=== PATIENT | male | born 1980 | race Caucasian/White ===

== ENCOUNTER 2019-01-28 14:21 | Inpatient (IN) | payer OTHER ==
[2019-01-28 15:21] VITALS: BMI 42.8
--- NOTE | 2019-01-28 16:05 | HP ---
CIWA Score Nausea/Vomitin Muscle Tremors: 3 Anxiety: 3 Agitation: 3 Paroxysmal Sweats: 1-Minimal Palms Moist Orientation: 0-Oriented Tacttile Disturbances: 1-Very Mild Itch/Numbness Auditory Disturbances: 0-None Visual Disturbances: 0-None Headache: 2-Mild CIWA-Ar Total Score: 15 - Admission Criteria OASAS Guidelines: Admission for Medically Managed Detox: Requires at least one of the followin. CIWA greater than 12 2. Seizures within the past 24 hours 3. Delirium tremens within the past 24 hours 4. Hallucinations within the past 24 hours 5. Acute intervention needed for co occurring medical disorder 6. Acute intervention needed for co occurring psychiatric disorder 7. Severe withdrawal that cannot be handled at a lower level of care (continued vomiting, continued diarrhea, abnormal vital signs) requiring intravenous medication and/or fluids 8. Admitting History and Physical - Admission Chief Complaint: i need help to stop drinking alcohol,crack History of Present Illness: this 38 years old mlae with alcohol and crack dependence,seeking help to stop, denied seizure, syncope multiple admissions ,last detox 1 week ago hepatitis c no treatment history of cirrhosis in 2011 seen at [facility] by ambulance 01/27/19 longest sobriety 2 years bipolar 1 disorder History Source: Patient Limitations to Obtaining History: No Limitations - Past Medical History Hepatobiliary: Yes: Cirrhosis Psych: Yes: Bipolar Endocrine: Yes: Hyperthyroidism - Past Surgical History Additional Past Surgical History: carotid stenosis undescend testes - Smoking History Smoking history: Former smoker Have you smoked in the past 12 months: Yes Aproximately how many cigarettes per day: 10 - Alcohol/Substance Use Hx Alcohol Use: Yes (park care) - Social History Usual Living Arrangement: Yes: Other (room mate) ADL: Support Services (disable) Occupation: unemploye History of Recent Travel: No Other Social History: this 38 years old male with alcohol and cocaine dependence ,seeking detox,withdrawal symptom,seen by [facility] last night,. disable Admission ROS BHS - HPI Chief Complaint: i need help to stop alcohol and cocaine Allergies/Adverse Reactions: Allergies Allergy/AdvReac Type Severity Reaction Status Date / Time amoxicillin trihydrate Allergy Severe Swelling Verified 01/28/19 15:08 [From Augmentin] potassium clavulanate Allergy Severe Hives Verified 01/28/19 15:08 [From Augmentin] Sulfa (Sulfonamide Allergy Severe Swelling Verified 01/28/19 15:08 Antibiotics) History of Present Illness: this 38 years old male with alcohol and cocaine dependence,seeking detox, withdrawal symptom,seen in [facility] today,recieving ativan denied seizure denied syncope nicotine dependence bipolar 1 disorder cirrhosis of liver since 2011 Exam Limitations: No Limitations - Ebola screening Have you traveled outside of the country in the last 21 days: No Have you had contact with anyone from an Ebola affected area: No Do you have a fever: No - Review of Systems Constitutional: Loss of Appetite, Malaise, Night Sweats, Changes in sleep, Weakness EENT: reports: Nose Congestion Respiratory: reports: No Symptoms reported Cardiac: reports: No Symptoms Reported GI: reports: Nausea, Poor Appetite, Vomiting, Abdominal cramping : reports: No Symptoms Reported Musculoskeletal: reports: Back Pain, Muscle Pain Integumentary: reports: Dryness Neuro: reports: Headache, Tremors Endocrine: reports: No Symptoms Reported Hematology: reports: No Symptoms Reported Psychiatric: reports: No Sypmtoms Reported, Judgement Intact, Mood/Affect Appropiate, Orientated x3 Other Systems: Reviewed and Negative Patient History - Patient Medical History Hx Anemia: No Hx Asthma: No Hx Chronic Obstructive Pulmonary Disease (COPD): No Hx Cancer: No Hx Cardiac Disorders: No Hx Congestive Heart Failure: No Hx Hypertension: Yes (on med,non compliance) Hx Hypercholesterolemia: No Hx Pacemaker: No HX Cerebrovascular Accident: No Hx Seizures: Yes Hx Dementia: No Hx Diabetes: No Hx Gastrointestinal Disorders: No Hx Liver Disease: Yes (STAGE 4 CIRROHSIS) Hx Genitourinary Disorders: No Hx Sexually Transmitted Disorders: No Hx Renal Disease (ESRD): No Hx Thyroid Disease: No Hx Human Immunodeficiency Virus (HIV): No (last 2019 negative) Hx Hepatitis C: Yes Hx Depression: Yes Hx Suicide Attempt: No Hx Bipolar Disorder: Yes (borderline personality disorder) Hx Schizophrenia: No Other Medical History: no suicidal,no homicidal - Patient Surgical History Past Surgical History: Yes Hx Neurologic Surgery: No Hx Cataract Extraction: No Hx Cardiac Surgery: No Hx Lung Surgery: No Hx Breast Surgery: No Hx Breast Biopsy: No Hx Abdominal Surgery: No Hx Appendectomy: No Hx Cholecystectomy: No Hx Genitourinary Surgery: No Hx Section: No Hx Orthopedic Surgery: No Hx Hysterectomy: No Other Surgical History: as craniosytosis/ undescended testicle/ deviated septum Anesthesia Reaction: No - PPD History Previous Implant?: Yes Implanted On Prior [facility] Admission?: Yes Date: 12/17/14 Results: 0 mm PPD to be Administered?: Yes - Smoking Cessation Smoking history: Former smoker Have you smoked in the past 12 months: Yes Aproximately how many cigarettes per day: 10 Hx Chewing Tobacco Use: No Initiated information on smoking cessation: Yes 'Breaking Loose' booklet given: 01/28/19 - Substance & Tx. History Hx Alcohol Use: Yes Hx Substance Use: Yes Substance Use Type: Alcohol, Cocaine Hx Substance Use Treatment: Yes (1 week ago,unknown facility) - Substances abused Alcohol Substance route: Oral Frequency: Daily Amount used: >LITER OF [place]/VODKA AND 4 24-oz cans of [place] Age of first use: 12 Date of last use: 01/27/19 Crack Substance route: Smoking Frequency: Daily Amount used: $60 Age of first use: 15 Date of last use: 01/28/19 Non-Rx Methadone Substance route: Oral Frequency: 1-3 times last 30 days Amount used: 5mg Age of first use: 38 Date of last use: 01/21/19 K2/Spice Substance route: Smoking Frequency: 1-3 times last 30 days Amount used: 3 puffs Age of first use: 21 Date of last use: 01/22/19 Admission Physical Exam BHS - Vital Signs Vital Signs: Vital Signs - 24 hr 01/28/19 15:06 Temperature 98.2 F Pulse Rate 96 H Respiratory 18 Rate Blood Pressure 125/76 - Physical General Appearance: Yes: Moderate Distress, Tremorous, Irritable, Sweating, Anxious HEENTM: Yes: Normal ENT Inspection, JACQUES, Pharynx Normal Respiratory: Yes: Lungs Clear, Normal Breath Sounds, No Respiratory Distress Neck: Yes: Within Normal Limits, Supple, Trachea in good position Breast: Yes: Within Normal Limits Cardiology: Yes: Within Normal Limits, Regular Rhythm, Regular Rate, S1, S2 Abdominal: Yes: Normal Bowel Sounds, Non Tender, Flat, Soft Genitourinary: Yes: Within Normal Limits Back: Yes: Muscle Spasm Musculoskeletal: Yes: Back pain, Muscle Pain Extremities: Yes: Tremors Neurological: Yes: music worker II-XII NML intact, Alert, Motor Strength 5/5 Integumentary: Yes: Dry Lymphatic: Yes: Within Normal Limits - Diagnostic (1) Alcohol dependence with uncomplicated withdrawal Current Visit: No Status: Acute (2) Cocaine abuse Current Visit: No Status: Acute (3) Syncope Current Visit: No Status: Acute (4) Hepatitis C Current Visit: No Status: Chronic Qualifiers: (5) Cocaine dependence Current Visit: No Status: Suspected Qualifiers: Substance use status: uncomplicated Qualified Code(s): F14.20 - Cocaine dependence, uncomplicated (6) Bipolar I disorder Current Visit: No Status: Chronic (7) Cirrhosis Current Visit: No Status: Chronic Qualifiers: Hepatic cirrhosis type: alcoholic cirrhosis Ascites presence: without ascites Qualified Code(s): K70.30 - Alcoholic cirrhosis of liver without ascites Cleared for Admission S - Detox or Rehab [facility] Level of Care: Medically Managed Detox Regimen/Protocol: Ativan Breathalyzer - Breathalyzer Breathalyzer: 0 Urine Drug Screen - Test Device Lot number: [id number] Expiration date: 09/04/20 - Control Is test valid?: Yes - Results Drug screen NEGATIVE: No Urine drug screen results: KAILASH-Cocaine, BZO-Benzodiazepines Inpatient Rehab Admission - Rehab Decision to Admit Inpatient rehab admission?: No
[2019-01-28] MEDS ORDERED: METHOCARBAMOL 500 MG TABLET PO PRN (16:26)
[2019-01-28] MEDS ORDERED: BISMUTH SUBSALICYLATE 524 MG/30 ML UD PO PRN (16:26)
[2019-01-28] MEDS ORDERED: IBUPROFEN 400 MG TABLET (FP) PO PRN (16:26)
[2019-01-28] MEDS ORDERED: MAG HYDROX/AL HYDROX/SIMETH 30 ML UNIT-DOSE CUP PO PRN (16:26)
[2019-01-28] MEDS ORDERED: ACETAMINOPHEN 325 MG TABLET (FP) PO PRN ×2 (16:26)
[2019-01-28] MEDS ORDERED: MAGNESIUM CITRATE 300 ML BOTTLE PO PRN (16:26)
[2019-01-28] MEDS ORDERED: MAGNESIUM HYDROX 2400MG/30ML ORAL SUSPENSION 30 ML CUP PO PRN (16:26)
[2019-01-28] MEDS ORDERED: MENTHOL/PHENOL 1 EACH UD MM PRN (16:26)
[2019-01-28] MEDS: LORazepam 2 MG TABLET PO SCH ×2 (21:52→23:29)
[2019-01-28] MEDS: FAMOTIDINE 20 MG TABLET PO SCH (21:52)
[2019-01-28] MEDS: THIAMINE HCL 100 MG TABLET (FP) PO SCH (23:29)
[2019-01-29] MEDS: LORazepam 1 MG TABLET PO PRN (03:12)
[2019-01-29] MEDS: LORazepam 2 MG TABLET PO SCH ×4 (05:46→22:17)
--- NOTE | 2019-01-29 09:41 | PN ---
S CIWA - CIWA Score Nausea/Vomitin-Mild Nausea/No Vomiting Muscle Tremors: 3 Anxiety: 3 Agitation: 1-Slight > Activity Paroxysmal Sweats: 2 Orientation: 1-Uncertain about Date (date of week) Tacttile Disturbances: 0-None Auditory Disturbances: 0-None Visual Disturbances: 0-None Headache: 1-Very Mild CIWA-Ar Total Score: 12 BHS Progress Note (SOAP) Subjective: 38 years old male admitted on 01/28/19 for alcohol withdrawal sx management treating with ativan detox regimen ate breakfast tolerated food and fluid well ambulating on hallway steady gait encourage to attend groups and meetings Objective: 01/29/19 09:40 Vital Signs Temperature 97.3 F L 01/29/19 09:20 Pulse Rate 80 01/29/19 09:20 Respiratory Rate 18 01/29/19 09:20 Blood Pressure 130/82 01/29/19 09:20 O2 Sat by Pulse Oximetry (%) lab pending Assessment: 01/29/19 09:41 alcohol withdrawal Plan: ativan regimen
[2019-01-29] MEDS: FAMOTIDINE 20 MG TABLET PO SCH (10:00)
[2019-01-29] MEDS: PRENATAL VITAMINS W/ FOLIC ACID TABLET (FP) PO SCH (10:00)
[2019-01-29 10:59] LABS: ALBUMIN 3.4 g/dl (3.4-5.0); BILIRUBIN,TOTAL 1.1 mg/dL (0.2-1); BLOOD UREA NITROGEN 8.6 mg/dL (7-18); CALCIUM 8.4 mg/dL (8.5-10.1); CREATININE 0.7 mg/dL (0.55-1.3); POTASSIUM 3.4 mmol/L (3.5-5.1)
[2019-01-29 11:06] LABS: HEMATOCRIT 38.4 % (35.4-49); HEMOGLOBIN 13.3 GM/dL (11.7-16.9); MCH 30.9 pg (25.7-33.7); MCHC 34.7 g/dl (32.0-35.9); MEAN PLT VOLUME 10.3 fl (7.5-11.1); PLATELET COUNT 66 K/MM3 (134-434); RBC 4.32 M/mm3 (4.00-5.60); RDW 16.5 % (11.9-15.9); WHITE BLOOD COUNT 3.5 K/mm3 (4.0-10.0)
[2019-01-29 11:09] LABS: URINE APPEARANCE CLEAR; URINE BILIRUBIN NEGATIVE (NEGATIVE); URINE COLOR YELLOW; URINE GLUCOSE (UA) NEGATIVE (NEGATIVE); URINE KETONE NEGATIVE (NEGATIVE); URINE LEUK ESTERASE NEGATIVE (NEGATIVE); URINE NITRITE NEGATIVE (NEGATIVE); URINE PROTEIN NEGATIVE (NEGATIVE)
[2019-01-29] MEDS: hydrOXYzine PAMOATE 25 MG CAPSULE (FP) PO PRN (18:04)
[2019-01-29] MEDS: THIAMINE HCL 100 MG TABLET (FP) PO SCH (22:17)
[2019-01-29] MEDS: MELATONIN 5 MG TABLETS PO PRN (22:18)
[2019-01-30] MEDS: LORazepam 1 MG TABLET PO PRN (03:56)
[2019-01-30] MEDS: LORazepam 1 MG TABLET PO SCH ×4 (05:24→22:11)
[2019-01-30] MEDS: PRENATAL VITAMINS W/ FOLIC ACID TABLET (FP) PO SCH (10:21)
[2019-01-30] MEDS: FAMOTIDINE 20 MG TABLET PO SCH (10:21)
[2019-01-30] MEDS ORDERED: LOPERAMIDE HCL 2 MG CAPSULE PO ONE ×2 (10:28→15:00)
--- NOTE | 2019-01-30 10:31 | EKG ---
Test Reason : Blood Pressure : / mmHG Vent. Rate : 088 BPM Atrial Rate : 088 BPM P-R Int : 150 ms QRS Dur : 098 ms QT Int : 386 ms P-R-T Axes : 051 003 042 degrees QTc Int : 467 ms NORMAL SINUS RHYTHM NORMAL ECG WHEN COMPARED WITH ECG OF 06-OCT-2015 21:53, NO SIGNIFICANT CHANGE WAS FOUND Confirmed by GUS MICHELE MD ([id number]) on 01/30/2019 10:31:06 AM Referred By: SUDHIR Confirmed By:GUS MICHELE MD
--- NOTE | 2019-01-30 10:32 | PN ---
[facility] CIWA - CIWA Score Nausea/Vomitin-Mild Nausea/No Vomiting Muscle Tremors: 3 Anxiety: 4-Mod. Anxious/Guarded Agitation: 2 Paroxysmal Sweats: 1-Minimal Palms Moist Orientation: 0-Oriented Tacttile Disturbances: 0-None Auditory Disturbances: 0-None Visual Disturbances: 0-None Headache: 0-None Present CIWA-Ar Total Score: 11 S Progress Note (SOAP) Subjective: 38 years old male admitted on 01/28/19 for alcohol withdrawal sx management treating with ativan detox regimen c/o loose stool x 1 after breakfast imodium 4 mg po x 1 discontinue MOM and citric Objective: 01/30/19 10:31 Vital Signs Temperature 96.9 F L 01/30/19 09:26 Pulse Rate 69 01/30/19 09:26 Respiratory Rate 18 01/30/19 09:26 Blood Pressure 108/65 01/30/19 09:26 O2 Sat by Pulse Oximetry (%) Laboratory Last Values WBC 3.5 K/mm3 (4.0-10.0) L 01/29/19 07:50 RBC 4.32 M/mm3 (4.00-5.60) 01/29/19 07:50 Hgb 13.3 GM/dL (11.7-16.9) 01/29/19 07:50 Hct 38.4 % (35.4-49) 01/29/19 07:50 MCV 89.0 fl (80-96) 01/29/19 07:50 MCH 30.9 pg (25.7-33.7) 01/29/19 07:50 MCHC 34.7 g/dl (32.0-35.9) 01/29/19 07:50 RDW 16.5 % (11.9-15.9) H 01/29/19 07:50 Plt Count 66 K/MM3 (134-434) L D 01/29/19 07:50 MPV 10.3 fl (7.5-11.1) 01/29/19 07:50 Sodium 141 mmol/L (136-145) 01/29/19 07:50 Potassium 3.4 mmol/L (3.5-5.1) L 01/29/19 07:50 Chloride 107 mmol/L (98-107) 01/29/19 07:50 Carbon Dioxide 28 mmol/L (21-32) 01/29/19 07:50 Anion Gap 6 MMOL/L (8-16) L 01/29/19 07:50 BUN 8.6 mg/dL (7-18) 01/29/19 07:50 Creatinine 0.7 mg/dL (0.55-1.3) 01/29/19 07:50 Est GFR (CKD-EPI)AfAm 138.75 01/29/19 07:50 Est GFR (CKD-EPI)NonAf 119.71 01/29/19 07:50 Random Glucose 94 mg/dL (74-106) 01/29/19 07:50 Calcium 8.4 mg/dL (8.5-10.1) L 01/29/19 07:50 Total Bilirubin 1.1 mg/dL (0.2-1) H 01/29/19 07:50 AST 42 U/L (15-37) H 01/29/19 07:50 ALT 36 U/L (13-61) 01/29/19 07:50 Alkaline Phosphatase 104 U/L (45-117) 01/29/19 07:50 Total Protein 6.0 g/dl (6.4-8.2) L 01/29/19 07:50 Albumin 3.4 g/dl (3.4-5.0) 01/29/19 07:50 Urine Color Yellow 01/29/19 07:50 Urine Appearance Clear 01/29/19 07:50 Urine pH 6.0 (5.0-8.0) D 01/29/19 07:50 Ur Specific [place] 1.014 (1.010-1.035) 01/29/19 07:50 Urine Protein Negative (NEGATIVE) 01/29/19 07:50 Urine Glucose (UA) Negative (NEGATIVE) 01/29/19 07:50 Urine Ketones Negative (NEGATIVE) 01/29/19 07:50 Urine Blood Negative (NEGATIVE) 01/29/19 07:50 Urine Nitrite Negative (NEGATIVE) 01/29/19 07:50 Urine Bilirubin Negative (NEGATIVE) 01/29/19 07:50 Urine Urobilinogen 1.0 mg/dL (0.2-1.0) 01/29/19 07:50 Ur Leukocyte Esterase Negative (NEGATIVE) 01/29/19 07:50 RPR Titer Nonreactive (NONREACTIVE) 01/29/19 07:50 lab noted low plt discontinue motrin low K+ potassium 20meq bid x 2 days 01/30/19 10:33 Assessment: 01/30/19 10:34 alcohol withdrawal Plan: ativan regimen
[2019-01-30] MEDS: POTASSIUM CHLORIDE ORAL LIQUID 20 MEQ/15 ML PO SCH ×2 (12:10→22:10)
[2019-01-30] MEDS: hydrOXYzine PAMOATE 25 MG CAPSULE (FP) PO PRN (17:15)
[2019-01-30] MEDS: THIAMINE HCL 100 MG TABLET (FP) PO SCH (22:11)
[2019-01-30] MEDS: MELATONIN 5 MG TABLETS PO PRN (22:12)
[2019-01-31] MEDS: hydrOXYzine PAMOATE 25 MG CAPSULE (FP) PO PRN (01:40)
[2019-01-31] MEDS: LORazepam 0.5 MG TABLET PO PRN ×2 (01:41→08:57)
[2019-01-31] MEDS: LORazepam 0.5 MG TABLET PO SCH ×3 (05:42→17:26)
[2019-01-31] MEDS: FAMOTIDINE 20 MG TABLET PO SCH (10:14)
[2019-01-31] MEDS: PRENATAL VITAMINS W/ FOLIC ACID TABLET (FP) PO SCH (10:14)
[2019-01-31] MEDS: POTASSIUM CHLORIDE ORAL LIQUID 20 MEQ/15 ML PO SCH (10:16)
--- NOTE | 2019-01-31 11:56 | PN ---
S CIWA - CIWA Score Nausea/Vomitin-No Nausea/No Vomiting Muscle Tremors: None Anxiety: 2 Agitation: 0-Normal Activity Paroxysmal Sweats: 2 Orientation: 0-Oriented Tacttile Disturbances: 0-None Auditory Disturbances: 0-None Visual Disturbances: 0-None Headache: 2-Mild CIWA-Ar Total Score: 6 BHS Progress Note (SOAP) Subjective: c/o mild sweats and anxiety. Objective: 01/31/19 11:55 Vital Signs 01/31/19 01/31/19 06:16 09:09 Temperature 97.4 F L 97.8 F Pulse Rate 68 71 Respiratory 20 16 Rate Blood Pressure 112/63 119/73 Laboratory Last Values WBC 3.5 K/mm3 (4.0-10.0) L 01/29/19 07:50 RBC 4.32 M/mm3 (4.00-5.60) 01/29/19 07:50 Hgb 13.3 GM/dL (11.7-16.9) 01/29/19 07:50 Hct 38.4 % (35.4-49) 01/29/19 07:50 MCV 89.0 fl (80-96) 01/29/19 07:50 MCH 30.9 pg (25.7-33.7) 01/29/19 07:50 MCHC 34.7 g/dl (32.0-35.9) 01/29/19 07:50 RDW 16.5 % (11.9-15.9) H 01/29/19 07:50 Plt Count 66 K/MM3 (134-434) L D 01/29/19 07:50 MPV 10.3 fl (7.5-11.1) 01/29/19 07:50 Sodium 141 mmol/L (136-145) 01/29/19 07:50 Potassium 3.4 mmol/L (3.5-5.1) L 01/29/19 07:50 Chloride 107 mmol/L (98-107) 01/29/19 07:50 Carbon Dioxide 28 mmol/L (21-32) 01/29/19 07:50 Anion Gap 6 MMOL/L (8-16) L 01/29/19 07:50 BUN 8.6 mg/dL (7-18) 01/29/19 07:50 Creatinine 0.7 mg/dL (0.55-1.3) 01/29/19 07:50 Est GFR (CKD-EPI)AfAm 138.75 01/29/19 07:50 Est GFR (CKD-EPI)NonAf 119.71 01/29/19 07:50 Random Glucose 94 mg/dL (74-106) 01/29/19 07:50 Calcium 8.4 mg/dL (8.5-10.1) L 01/29/19 07:50 Total Bilirubin 1.1 mg/dL (0.2-1) H 01/29/19 07:50 AST 42 U/L (15-37) H 01/29/19 07:50 ALT 36 U/L (13-61) 01/29/19 07:50 Alkaline Phosphatase 104 U/L (45-117) 01/29/19 07:50 Total Protein 6.0 g/dl (6.4-8.2) L 01/29/19 07:50 Albumin 3.4 g/dl (3.4-5.0) 01/29/19 07:50 Urine Color Yellow 01/29/19 07:50 Urine Appearance Clear 01/29/19 07:50 Urine pH 6.0 (5.0-8.0) D 01/29/19 07:50 Ur Specific [place] 1.014 (1.010-1.035) 01/29/19 07:50 Urine Protein Negative (NEGATIVE) 01/29/19 07:50 Urine Glucose (UA) Negative (NEGATIVE) 01/29/19 07:50 Urine Ketones Negative (NEGATIVE) 01/29/19 07:50 Urine Blood Negative (NEGATIVE) 01/29/19 07:50 Urine Nitrite Negative (NEGATIVE) 01/29/19 07:50 Urine Bilirubin Negative (NEGATIVE) 01/29/19 07:50 Urine Urobilinogen 1.0 mg/dL (0.2-1.0) 01/29/19 07:50 Ur Leukocyte Esterase Negative (NEGATIVE) 01/29/19 07:50 RPR Titer Nonreactive (NONREACTIVE) 01/29/19 07:50 Labs noted. Assessment: 01/31/19 11:56 AOX3, in no acute respiratory distress. Full ROM, ambulating in the unit. Withdrawal symptoms. For d/c tomorrow. Plan: continue detox. D/C in AM.
[2019-01-31 17:08] VITALS: BP 104/61; PULSE 69; TEMP 97.1
--- NOTE | 2019-01-31 18:43 | DS ---
[facility] Detox Discharge Summary Admission Date: 01/28/19 Discharge Date: 01/31/19 - History Present History: Alcohol Dependence, Cocaine Dependence Additional Comments: Admitted seeking alcohol detox. - Physical Exam Results Vital Signs: Vital Signs Temperature 97.1 F L 01/31/19 17:08 Pulse Rate 69 01/31/19 17:08 Respiratory Rate 18 01/31/19 17:08 Blood Pressure 104/61 01/31/19 17:08 O2 Sat by Pulse Oximetry (%) Pertinent Admission Physical Exam Findings: Admitted w/ alcohol withdrawal symptoms. Laboratory Last Values WBC 3.5 K/mm3 (4.0-10.0) L 01/29/19 07:50 RBC 4.32 M/mm3 (4.00-5.60) 01/29/19 07:50 Hgb 13.3 GM/dL (11.7-16.9) 01/29/19 07:50 Hct 38.4 % (35.4-49) 01/29/19 07:50 MCV 89.0 fl (80-96) 01/29/19 07:50 MCH 30.9 pg (25.7-33.7) 01/29/19 07:50 MCHC 34.7 g/dl (32.0-35.9) 01/29/19 07:50 RDW 16.5 % (11.9-15.9) H 01/29/19 07:50 Plt Count 66 K/MM3 (134-434) L D 01/29/19 07:50 MPV 10.3 fl (7.5-11.1) 01/29/19 07:50 Sodium 141 mmol/L (136-145) 01/29/19 07:50 Potassium 3.4 mmol/L (3.5-5.1) L 01/29/19 07:50 Chloride 107 mmol/L (98-107) 01/29/19 07:50 Carbon Dioxide 28 mmol/L (21-32) 01/29/19 07:50 Anion Gap 6 MMOL/L (8-16) L 01/29/19 07:50 BUN 8.6 mg/dL (7-18) 01/29/19 07:50 Creatinine 0.7 mg/dL (0.55-1.3) 01/29/19 07:50 Est GFR (CKD-EPI)AfAm 138.75 01/29/19 07:50 Est GFR (CKD-EPI)NonAf 119.71 01/29/19 07:50 Random Glucose 94 mg/dL (74-106) 01/29/19 07:50 Calcium 8.4 mg/dL (8.5-10.1) L 01/29/19 07:50 Total Bilirubin 1.1 mg/dL (0.2-1) H 01/29/19 07:50 AST 42 U/L (15-37) H 01/29/19 07:50 ALT 36 U/L (13-61) 01/29/19 07:50 Alkaline Phosphatase 104 U/L (45-117) 01/29/19 07:50 Total Protein 6.0 g/dl (6.4-8.2) L 01/29/19 07:50 Albumin 3.4 g/dl (3.4-5.0) 01/29/19 07:50 Urine Color Yellow 01/29/19 07:50 Urine Appearance Clear 01/29/19 07:50 Urine pH 6.0 (5.0-8.0) D 01/29/19 07:50 Ur Specific [place] 1.014 (1.010-1.035) 01/29/19 07:50 Urine Protein Negative (NEGATIVE) 01/29/19 07:50 Urine Glucose (UA) Negative (NEGATIVE) 01/29/19 07:50 Urine Ketones Negative (NEGATIVE) 01/29/19 07:50 Urine Blood Negative (NEGATIVE) 01/29/19 07:50 Urine Nitrite Negative (NEGATIVE) 01/29/19 07:50 Urine Bilirubin Negative (NEGATIVE) 01/29/19 07:50 Urine Urobilinogen 1.0 mg/dL (0.2-1.0) 01/29/19 07:50 Ur Leukocyte Esterase Negative (NEGATIVE) 01/29/19 07:50 RPR Titer Nonreactive (NONREACTIVE) 01/29/19 07:50 Labs reviewed. Patient encouraged to eat a banana a day and drink orange juice. Patient encouraged to f/u w/ PCP and show lab reports from this admission. Patient stated no discharge meds needed. Encouraged to f/u w/ a MH Provider or go to ER or call 911 if having suicide or violent ideation or feeling very ill. - Treatment Hospital Course: Detox Protocol Followed, Discharged Condition Good (Alert and oriented. Denies thoughts of harming self or others. Discussed real potential for relapse and stated "I'm fine".) - Medication Discharge Medications: Ambulatory Orders Mirtazapine 30 mg PO HS 10/03/15 Omeprazole 40 mg PO DAILY 10/03/15 Propranolol HCl 20 mg PO BID 10/03/15 Bupropion HCl [Wellbutrin Xl] 300 mg PO DAILY 01/28/19 - Diagnosis (1) History of syncope Status: Suspected (2) Alcohol dependence with uncomplicated withdrawal Status: Acute (3) Nicotine dependence Status: Chronic Qualifiers: Nicotine product type: cigarettes Substance use status: uncomplicated Qualified Code(s): F17.210 - Nicotine dependence, cigarettes, uncomplicated (4) Cocaine dependence Status: Chronic Qualifiers: Substance use status: uncomplicated Qualified Code(s): F14.20 - Cocaine dependence, uncomplicated - AMA Did Patient Leave Against Medical Advice: No
[2019-02-01] MEDS ORDERED: LORazepam 0.5 MG TABLET PO ONE (05:00)
== END 2019-01-31 19:21 | disposition home or self-care (01) | DRG 897 ==
LOC: YASAS 14:21 → Y3N 16:52
PROVIDERS: ADMIT Allergy & Immunology; ATTEND Allergy & Immunology
PROC: HZ2ZZZZ Detoxification Services for Substance Abuse Treatment (ICD-10-PCS; principal; 2019-01-28)
DX: F10.230 Alcohol dependence with withdrawal, uncomplicated (principal); F14.20 Cocaine dependence, uncomplicated; F17.210 Nicotine dependence, cigarettes, uncomplicated; K70.30 Alcoholic cirrhosis of liver without ascites; E87.6 Hypokalemia; Z91.14 Patient's other noncompliance with medication regimen
CPT/HCPCS: 36415; 80053; 81003; 85027; 86593; 93005; 93010

== ENCOUNTER 2020-04-10 12:21 | Inpatient (IN) | payer OTHER ==
[2020-04-10 16:07] VITALS: BMI 39.3
[2020-04-10] MEDS ORDERED: MAG HYDROX/AL HYDROX/SIMETH 30 ML UNIT-DOSE CUP PO PRN (17:49)
[2020-04-10] MEDS ORDERED: LORazepam 2 MG TABLET PO ONE (17:49)
[2020-04-10] MEDS ORDERED: MELATONIN 5 MG TABLETS PO PRN (17:49)
[2020-04-10] MEDS ORDERED: BISMUTH SUBSALICYLATE 524 MG/30 ML UD PO PRN (17:49)
[2020-04-10] MEDS ORDERED: ONDANSETRON *ODT* 4 MG TABLET SL PRN (17:49)
[2020-04-10] MEDS ORDERED: MAGNESIUM HYDROX 2400MG/30ML ORAL SUSPENSION 30 ML CUP PO PRN (17:49)
[2020-04-10] MEDS ORDERED: MENTHOL/PHENOL 1 EACH UD MM PRN (17:49)
[2020-04-10] MEDS ORDERED: NICOTINE 14 MG/24 HOURS TOPICAL PATCH TD PRN (17:49)
[2020-04-10] MEDS ORDERED: MAGNESIUM CITRATE 300 ML BOTTLE PO PRN (17:49)
[2020-04-10] MEDS ORDERED: NICOTINE POLACRILEX 2 MG GUM BUC PRN (17:49)
[2020-04-10] MEDS ORDERED: IBUPROFEN 400 MG TABLET (FP) PO PRN (17:49)
[2020-04-10] MEDS: METHOCARBAMOL 500 MG TABLET PO PRN (18:15)
[2020-04-10] MEDS ORDERED: TRIMETHOBENZAMIDE HCL 200MG/2ML INJ IM ONE (18:44)
[2020-04-10] MEDS: LORazepam 2 MG TABLET PO SCH (22:10)
[2020-04-10] MEDS: THIAMINE HCL 100 MG TABLET (FP) PO SCH (22:10)
[2020-04-11] MEDS: LORazepam 2 MG TABLET PO SCH ×3 (05:29→17:28)
[2020-04-11] MEDS: LEVOTHYROXINE NA 25 MCG TABLET (FP) PO SCH (06:06)
[2020-04-11] MEDS: PRENATAL VITAMINS W/ FOLIC ACID TABLET (FP) PO SCH (10:15)
[2020-04-11] MEDS: TAMSULOSIN HCL 0.4 MG CAP PO SCH (10:15)
[2020-04-11] MEDS: PANTOPRAZOLE 40 MG TABLET PO SCH (10:15)
[2020-04-11 11:42] LABS: HEMATOCRIT 44.5 % (35.4-49); MCH 32.5 pg (25.7-33.7); MEAN CELL VOLUME 90.1 fl (80-96); MEAN PLT VOLUME 9.2 fl (7.5-11.1); PLATELET COUNT 37 K/MM3 (134-434); RBC 4.94 M/mm3 (4.00-5.60); WHITE BLOOD COUNT 3.4 K/mm3 (4.0-10.0)
[2020-04-11 11:47] LABS: INR 1.44 (0.83-1.09); PROTHROMBIN TIME (PATIENT) 17.5 SEC (9.7-13.0)
[2020-04-11 11:48] LABS: ALBUMIN 3.7 g/dl (3.4-5.0); BLOOD UREA NITROGEN 9.1 mg/dL (7-18); CALCIUM 8.9 mg/dL (8.5-10.1)
[2020-04-11 11:52] LABS: CREATININE 0.7 mg/dL (0.55-1.3)
[2020-04-11 11:53] LABS: BILIRUBIN,TOTAL 4.2 mg/dL (0.2-1); TOT PROT 6.4 g/dl (6.4-8.2)
[2020-04-11 11:58] LABS: POTASSIUM 2.6 mmol/L (3.5-5.1)
[2020-04-11] MEDS ORDERED: POTASSIUM CHLORIDE ORAL LIQUID 20 MEQ/15 ML PO ONE ×3 (12:03→23:00)
[2020-04-11] MEDS: METHOCARBAMOL 500 MG TABLET PO PRN (17:30)
[2020-04-11] MEDS: LACTULOSE 20 GM/30 ML UDC (FOR ORAL USE ONLY) PO SCH (17:32)
[2020-04-12] MEDS: LORazepam 1 MG TABLET PO PRN ×2 (01:27→15:19)
[2020-04-12] MEDS: LACTULOSE 20 GM/30 ML UDC (FOR ORAL USE ONLY) PO SCH ×3 (01:30→15:05)
[2020-04-12] MEDS: THIAMINE HCL 100 MG TABLET (FP) PO SCH (01:32)
[2020-04-12] MEDS: LORazepam 2 MG TABLET PO SCH (01:32)
[2020-04-12] MEDS: LORazepam 1 MG TABLET PO SCH ×2 (05:14→10:21)
[2020-04-12] MEDS: METHOCARBAMOL 500 MG TABLET PO PRN (05:17)
[2020-04-12] MEDS: LEVOTHYROXINE NA 25 MCG TABLET (FP) PO SCH (07:47)
[2020-04-12] MEDS: TAMSULOSIN HCL 0.4 MG CAP PO SCH (07:47)
[2020-04-12] MEDS ORDERED: POTASSIUM CHLORIDE TABS 20 MEQ TABLET.ER (FP) PO SCH (10:00)
[2020-04-12] MEDS: PRENATAL VITAMINS W/ FOLIC ACID TABLET (FP) PO SCH (10:20)
[2020-04-12] MEDS: PANTOPRAZOLE 40 MG TABLET PO SCH (10:20)
[2020-04-12] MEDS ORDERED: HYDROCORTISONE 1% TOPICAL CREAM 30 GM TUBE TP PRN (10:27)
[2020-04-12 10:44] LABS: POTASSIUM 3.2 mmol/L (3.5-5.1)
[2020-04-12 10:53] LABS: BLOOD UREA NITROGEN 14.8 mg/dL (7-18); CALCIUM 9.1 mg/dL (8.5-10.1)
[2020-04-12 10:54] LABS: ALBUMIN 3.4 g/dl (3.4-5.0); BILIRUBIN,TOTAL 2.5 mg/dL (0.2-1); CREATININE 0.9 mg/dL (0.55-1.3); TOT PROT 6.1 g/dl (6.4-8.2)
[2020-04-12 18:34] VITALS: BP 141/90; PULSE 89; TEMP 96.8
[2020-04-12] MEDS ORDERED: POTASSIUM CHLORIDE ORAL LIQUID 20 MEQ/15 ML PO SCH (22:00)
[2020-04-13] MEDS ORDERED: LORazepam 0.5 MG TABLET PO PRN
[2020-04-13] MEDS ORDERED: LORazepam 0.5 MG TABLET PO SCH (05:00)
[2020-04-14] MEDS ORDERED: LORazepam 0.5 MG TABLET PO ONE (05:00)
== END 2020-04-12 18:45 | disposition left against medical advice (07) | DRG 894 ==
LOC: YASAS 12:21 → Y3N 16:45
PROVIDERS: ADMIT Allergy & Immunology; ATTEND Allergy & Immunology
PROC: HZ2ZZZZ Detoxification Services for Substance Abuse Treatment (ICD-10-PCS; principal; 2020-04-10)
DX: F10.230 Alcohol dependence with withdrawal, uncomplicated (principal); F19.282 Other psychoactive substance dependence with psychoactive substance-induced sleep disorder; E72.20 Disorder of urea cycle metabolism, unspecified; F12.20 Cannabis dependence, uncomplicated; F17.210 Nicotine dependence, cigarettes, uncomplicated; F19.24 Other psychoactive substance dependence with psychoactive substance-induced mood disorder; F31.9 Bipolar disorder, unspecified; F60.3 Borderline personality disorder; F90.9 Attention-deficit hyperactivity disorder, unspecified type; F11.21 Opioid dependence, in remission; F14.21 Cocaine dependence, in remission; D69.6 Thrombocytopenia, unspecified; E80.6 Other disorders of bilirubin metabolism; E87.6 Hypokalemia; R74.01 Elevation of levels of liver transaminase levels; G47.30 Sleep apnea, unspecified; K70.30 Alcoholic cirrhosis of liver without ascites; Z62.810 Personal history of physical and sexual abuse in childhood; E66.9 Obesity, unspecified; Z68.39 Body mass index [BMI] 39.0-39.9, adult; Z91.410 Personal history of adult physical and sexual abuse; Z98.890 Other specified postprocedural states; Z88.8 Allergy status to other drugs, medicaments and biological substances; Z88.1 Allergy status to other antibiotic agents
CPT/HCPCS: 36415; 80053; 82140; 85027; 85610; 86780; 87522; C9803; U0003

== ENCOUNTER 2020-04-11 19:12 | Emergency (ER) | payer OTHER ==
[2020-04-11 19:43] VITALS: BP 121/91; PULSE 88; TEMP 98.8; BMI 41.4
[2020-04-11] MEDS ORDERED: POTASSIUM CHLORIDE TABS 20 MEQ TABLET.ER (FP) PO ONE ×2 (19:47→21:21)
[2020-04-11 20:53] LABS: INR 1.4 (0.83-1.09)
[2020-04-11 20:56] LABS: ACTIVATED PTT 30.3 SECONDS (25.2-36.5)
[2020-04-11 21:05] LABS: POTASSIUM 3.4 mmol/L (3.5-5.1)
[2020-04-11 21:07] LABS: CALCIUM 9.8 mg/dL (8.5-10.1)
[2020-04-11 21:08] LABS: ALBUMIN 3.9 g/dl (3.4-5.0); BLOOD UREA NITROGEN 12.8 mg/dL (7-18)
[2020-04-11 21:11] LABS: CREATININE 0.9 mg/dL (0.55-1.3); PHOSPHOROUS 2.5 mg/dL (2.5-4.9)
[2020-04-11 21:12] LABS: BILIRUBIN,TOTAL 4.4 mg/dL (0.2-1); TOT PROT 6.9 g/dl (6.4-8.2)
== END 2020-04-12 00:40 | disposition home or self-care (01) ==
LOC: JER 19:12
DX: D69.6 Thrombocytopenia, unspecified (principal); F10.20 Alcohol dependence, uncomplicated; E87.6 Hypokalemia
CPT/HCPCS: 36415; 80053; 82140; 82248; 83605; 83735; 84100; 85610; 85730; 93005; 93010; 99284-25

== ENCOUNTER 2022-02-16 11:47 | Inpatient (IN) | payer OTHER ==
[2022-02-16 12:23] VITALS: BMI 40.7
[2022-02-16] MEDS ORDERED: CEFEPIME HCL/D5W 1 GM/50 ML BAG IVPB ONE (14:22)
[2022-02-16] MEDS ORDERED: VANCOMYCIN/WATER 1,250 MG/250 ML BAG (RESTRICTED TO ID ONLY) IVPB ONE (14:22)
[2022-02-16] MEDS ORDERED: ACETAMINOPHEN 1000 MG/100 ML BAG IVPB ONE ×2 (14:23→16:51)
[2022-02-16] MEDS ORDERED: diazePAM CARPU-JECT 10 MG/2 ML DISP.SYRIN IVPUSH ONE ×2 (14:26→16:30)
[2022-02-16] MEDS ORDERED: MEROPENEM 500 MG in DEXTROSE 5%-WATER 100 ML IVPB ONE (14:44)
[2022-02-16] MEDS ORDERED: ACETAMINOPHEN INJECTION 100 ML IVPB ONE (14:53)
[2022-02-16 15:06] LABS: VENOUS BASE EXCESS 7.4 mmol/L (-2-2); VENOUS O2 SATURATION 95.5 % (70-80); VENOUS PCO2 41.5 mmHg (38-52); VENOUS PH 7.496 (7.310-7.410)
[2022-02-16 15:08] LABS: HEMATOCRIT 37.5 % (35.4-49); MCH 32.3 pg (25.7-33.7); MCHC 34.7 g/dl (32.0-35.9); MEAN CELL VOLUME 93.2 fl (80-96); MEAN PLT VOLUME 8.9 fl (7.5-11.1); PLATELET COUNT 138 10^3/uL (134-434); RBC 4.02 M/mm3 (4.00-5.60); RDW 15.5 % (11.9-15.9); WHITE BLOOD COUNT 5.6 K/mm3 (4.0-10.0)
[2022-02-16] MEDS ORDERED: diazePAM CARPU-JECT 10 MG/2 ML DISP.SYRIN ONE ×2 (15:08→16:55)
[2022-02-16] MEDS ORDERED: MEROPENEM 500 MG VIAL (RESTRICTED TO ID) IVPB ONE (15:17)
[2022-02-16 15:20] LABS: ACTIVATED PTT 25.4 SECONDS (25.2-36.5)
[2022-02-16 15:44] LABS: LACTIC ACID 2.2 mmol/L (0.4-2.0)
[2022-02-16] MEDS ORDERED: LACTATED RINGERS SOLUTION 1000 ML INFUS.BAG IV ONE (15:46)
[2022-02-16 15:50] LABS: CHLORIDE 98 mmol/L (98-107); SODIUM 144 mmol/L (136-145)
[2022-02-16 15:51] LABS: INR 1.21 (0.83-1.09)
[2022-02-16 15:52] LABS: CALCIUM 7.8 mg/dL (8.5-10.1)
[2022-02-16] MEDS ORDERED: VANCOMYCIN/WATER 1250 MG 1,250 MG/250 ML BAG IVPB ONE (15:52)
[2022-02-16 15:53] LABS: ALBUMIN 3.4 g/dl (3.4-5.0); BLOOD UREA NITROGEN 3.1 mg/dL (7-18); CO2 30 mmol/L (21-32); GLUCOSE,RANDOM 97 mg/dL (74-106)
[2022-02-16 15:55] LABS: CREATININE 0.6 mg/dL (0.55-1.3)
[2022-02-16 15:56] LABS: SGOT/AST 93 U/L (15-37); SGPT/ALT 57 U/L (13-61)
[2022-02-16 15:57] LABS: BILIRUBIN,TOTAL 0.9 mg/dL (0.2-1); TOT PROT 5.9 g/dl (6.4-8.2)
[2022-02-16 15:59] LABS: ALK PHOS 104 U/L (45-117)
[2022-02-16 16:11] LABS: ANION GAP 15 MMOL/L (8-16)
[2022-02-16] MEDS ORDERED: MAGNESIUM SULF 50% (8.12 MEQ/2 ML-1 GM VIAL) IVPB ONE (16:25)
[2022-02-16] MEDS ORDERED: POTASSIUM CHLORIDE ORAL LIQUID 20 MEQ/15 ML PO ONE (16:28)
[2022-02-16 16:37] LABS: LIPASE 231 U/L (73-393)
[2022-02-16 16:38] LABS: OPIATES, URI NEGATIVE (NEGATIVE)
[2022-02-16 16:39] LABS: METHADONE, UR NEGATIVE (NEGATIVE); PHENCYCLIDINE,URINE NEGATIVE (NEGATIVE); URINE AMPHETAMINES NEGATIVE (NEGATIVE); URINE BARBITURATES NEGATIVE (NEGATIVE)
[2022-02-16 16:45] LABS: COCAINE, UR POSITIVE (NEGATIVE); URINE BENZODIAZEPINES POSITIVE (NEGATIVE)
[2022-02-16 16:46] LABS: URINE APPEARANCE CLEAR; URINE BILIRUBIN NEGATIVE (NEGATIVE); URINE COLOR YELLOW; URINE GLUCOSE (UA) NEGATIVE (NEGATIVE); URINE KETONE TRACE (NEGATIVE); URINE LEUK ESTERASE NEGATIVE (NEGATIVE); URINE NITRITE NEGATIVE (NEGATIVE); URINE PROTEIN NEGATIVE (NEGATIVE)
[2022-02-16] MEDS ORDERED: KCL 10 MEQ IVPB 30 MEQ/300 ML INFUS.BAG IVPB ONE (16:56)
[2022-02-16] MEDS ORDERED: MAGNESIUM SULFATE IN WATER 2 GM/50 ML IVPB IVPB ONE (16:56)
[2022-02-16] MEDS ORDERED: POTASSIUM CHLORIDE ORAL LIQUID 20 MEQ/15 ML ONE (16:56)
[2022-02-16] MEDS ORDERED: chlordiazePOXIDE HCL 25 MG CAPSULE PO SCH (17:00)
[2022-02-16] MEDS ORDERED: THIAMINE HCL 200 MG/2 ML VIAL IM ONE (17:08)
[2022-02-16 17:11] LABS: ANISOCYTOSIS 1+; MACROCYTOSIS 1+
[2022-02-16] MEDS: KCL 10 MEQ IVPB 10 MEQ/100 ML INFUS.BAG IVPB SCH ×3 (17:25→20:34)
[2022-02-16] MEDS ORDERED: THIAMINE HCL 200 MG/2 ML VIAL ONE (18:02)
[2022-02-16] MEDS ORDERED: KETOROLAC TROMETHAMINE 15 MG/ML VIAL IVPUSH ONE ×2 (18:42→20:52)
[2022-02-16] MEDS ORDERED: KETOROLAC TROMETHAMINE 15 MG/ML VIAL ONE ×2 (18:43→20:57)
[2022-02-16 18:47] LABS: LACTIC ACID 3.3 mmol/L (0.4-2.0)
[2022-02-16] MEDS ORDERED: chlordiazePOXIDE HCL 25 MG CAPSULE PO PRN (18:49)
[2022-02-16] MEDS ORDERED: chlordiazePOXIDE HCL 25 MG CAPSULE ONE (18:59)
[2022-02-16] MEDS ORDERED: SODIUM CHLORIDE 1,000 ML IV SCH (19:15)
[2022-02-16 19:29] LABS: HIV INTERPRETATION NEGATIVE (NEGATIVE)
[2022-02-16] MEDS: VITAMIN B COMPLEX W/C COMBO TABLET (FP) PO SCH (19:51)
[2022-02-16] MEDS ORDERED: FAMOTIDINE 20 MG TABLET PO ONE (20:44)
[2022-02-16] MEDS ORDERED: FAMOTIDINE 20 MG TABLET ONE (20:57)
[2022-02-16] MEDS ORDERED: LORazepam 1 MG TABLET PO PRN (22:48)
[2022-02-16] MEDS ORDERED: THIAMINE HCL 100 MG TABLET (FP) ONE (23:49)
[2022-02-16] MEDS ORDERED: LORazepam 1 MG TABLET ONE (23:50)
[2022-02-16] MEDS: LORazepam 1 MG TABLET PO SCH (23:57)
[2022-02-16] MEDS: THIAMINE HCL 100 MG TABLET (FP) PO SCH (23:57)
[2022-02-17] MEDS ORDERED: LORazepam 1 MG TABLET ONE ×3 (05:09→16:43)
[2022-02-17] MEDS: LORazepam 1 MG TABLET PO SCH ×4 (05:15→23:07)
[2022-02-17] MEDS: ZINC OXIDE/PANTHENOL/VITAMIN E 56 GM TUBE TP SCH ×3 (07:22→21:55)
[2022-02-17] MEDS ORDERED: TAMSULOSIN HCL 0.4 MG CAP ONE (07:52)
[2022-02-17] MEDS ORDERED: LEVOTHYROXINE NA 25 MCG TABLET (FP) ONE (07:52)
[2022-02-17] MEDS: LEVOTHYROXINE NA 25 MCG TABLET (FP) PO SCH (07:58)
[2022-02-17] MEDS: TAMSULOSIN HCL 0.4 MG CAP PO SCH (07:58)
[2022-02-17 08:54] LABS: BASO % 0.9 % (0-2.0); EOS % 5.4 % (0-4.5); HEMATOCRIT 36.5 % (35.4-49); HEMOGLOBIN 12.8 GM/dL (11.7-16.9); LYMPH % 29.8 % (8-40); MCHC 35.2 g/dl (32.0-35.9); MEAN CELL VOLUME 93.8 fl (80-96); MEAN PLT VOLUME 9.2 fl (7.5-11.1); MONO % 10.9 % (3.8-10.2); PLATELET COUNT 81 10^3/uL (134-434); RBC 3.89 M/mm3 (4.00-5.60); RDW 15.5 % (11.9-15.9); WHITE BLOOD COUNT 2.7 K/mm3 (4.0-10.0)
[2022-02-17 09:11] LABS: CHLORIDE 102 mmol/L (98-107); SODIUM 142 mmol/L (136-145)
[2022-02-17 09:13] LABS: BLOOD UREA NITROGEN 5.7 mg/dL (7-18); CALCIUM 7.7 mg/dL (8.5-10.1); CO2 30 mmol/L (21-32); GLUCOSE,RANDOM 84 mg/dL (74-106)
[2022-02-17 09:14] LABS: ALBUMIN 3.2 g/dl (3.4-5.0)
[2022-02-17 09:16] LABS: CREATININE 0.7 mg/dL (0.55-1.3); PHOSPHOROUS 2.9 mg/dL (2.5-4.9); SGPT/ALT 51 U/L (13-61)
[2022-02-17 09:17] LABS: SGOT/AST 76 U/L (15-37)
[2022-02-17 09:18] LABS: TOT PROT 5.6 g/dl (6.4-8.2)
[2022-02-17 09:19] LABS: ALK PHOS 94 U/L (45-117); ANION GAP 10 MMOL/L (8-16)
[2022-02-17] MEDS ORDERED: PANTOPRAZOLE 40 MG TABLET PO ONE (10:02)
[2022-02-17] MEDS ORDERED: FOLIC ACID 1 MG TABLET (FP) ONE (10:02)
[2022-02-17] MEDS ORDERED: THIAMINE HCL 100 MG TABLET (FP) ONE (10:02)
[2022-02-17] MEDS ORDERED: ENOXAPARIN NA (PORCINE) 40 MG/0.4 ML DISP.SYRIN SQ ONE (10:02)
[2022-02-17] MEDS: THIAMINE HCL 100 MG TABLET (FP) PO SCH ×2 (10:15→21:56)
[2022-02-17] MEDS: ENOXAPARIN NA (PORCINE) 40 MG/0.4 ML DISP.SYRIN SQ SCH (10:16)
[2022-02-17] MEDS: PANTOPRAZOLE 40 MG TABLET PO SCH (10:16)
[2022-02-17] MEDS: FOLIC ACID 1 MG TABLET (FP) PO SCH (10:16)
[2022-02-17] MEDS: VITAMIN B COMPLEX W/C COMBO TABLET (FP) PO SCH (10:17)
[2022-02-17] MEDS ORDERED: POTASSIUM CHLORIDE ORAL LIQUID 20 MEQ/15 ML PO SCH (12:00)
[2022-02-17] MEDS ORDERED: KCL 10 MEQ IVPB 10 MEQ/100 ML INFUS.BAG IVPB ONE (12:45)
[2022-02-17] MEDS: KCL 10 MEQ IVPB 10 MEQ/100 ML INFUS.BAG IVPB SCH (12:47)
[2022-02-17] MEDS ORDERED: POTASSIUM CHLORIDE TABS 20 MEQ TABLET.ER (FP) PO ONE (12:49)
[2022-02-17] MEDS ORDERED: POTASSIUM CHLORIDE TABS 10 MEQ TABLET.ER (FP) PO SCH (13:00)
[2022-02-17] MEDS ORDERED: VANCOMYCIN/WATER FOR INJ (PEG) 1,000 MG/200 ML BAG IVPB ONE (16:43)
[2022-02-17] MEDS: VANCOMYCIN/WATER FOR INJ (PEG) 1,000 MG/200 ML BAG IVPB SCH (16:55)
[2022-02-17] MEDS ORDERED: MEROPENEM 1 GM VIAL (RESTRICTED TO ID) IVPB ONE (18:16)
[2022-02-17] MEDS: MEROPENEM 1 GM in DEXTROSE 5%-WATER 100 ML IVPB SCH (18:22)
[2022-02-17] MEDS ORDERED: KETOROLAC TROMETHAMINE 15 MG/ML VIAL IVPUSH ONE (21:12)
[2022-02-17] MEDS ORDERED: ACETAMINOPHEN 1000 MG/100 ML BAG IVPB ONE (21:14)
[2022-02-18] MEDS: MEROPENEM 1 GM in DEXTROSE 5%-WATER 100 ML IVPB SCH ×3 (01:20→17:30)
[2022-02-18] MEDS ORDERED: chlordiazePOXIDE HCL 25 MG CAPSULE PO SCH (05:00)
[2022-02-18] MEDS: LORazepam 1 MG TABLET PO SCH ×4 (05:45→23:34)
[2022-02-18] MEDS: LEVOTHYROXINE NA 25 MCG TABLET (FP) PO SCH (06:17)
[2022-02-18] MEDS: TAMSULOSIN HCL 0.4 MG CAP PO SCH (08:58)
[2022-02-18 09:11] LABS: BASO % 1.1 % (0-2.0); EOS % 5.6 % (0-4.5); HEMATOCRIT 35.9 % (35.4-49); HEMOGLOBIN 12.6 GM/dL (11.7-16.9); LYMPH % 32.1 % (8-40); MCH 32.8 pg (25.7-33.7); MCHC 35.3 g/dl (32.0-35.9); MEAN CELL VOLUME 93.1 fl (80-96); MEAN PLT VOLUME 9.4 fl (7.5-11.1); MONO % 11.7 % (3.8-10.2); NEUT % 49.5 % (42.8-82.8); PLATELET COUNT 75 10^3/uL (134-434); RBC 3.85 M/mm3 (4.00-5.60); RDW 15.5 % (11.9-15.9)
[2022-02-18 09:22] LABS: BLOOD UREA NITROGEN 9.5 mg/dL (7-18)
[2022-02-18 09:25] LABS: CREATININE 0.8 mg/dL (0.55-1.3)
[2022-02-18 09:27] LABS: BILIRUBIN,TOTAL 0.7 mg/dL (0.2-1); TOT PROT 5.5 g/dl (6.4-8.2)
[2022-02-18] MEDS: POTASSIUM CHLORIDE TABS 20 MEQ TABLET.ER (FP) PO SCH (09:55)
[2022-02-18] MEDS: FOLIC ACID 1 MG TABLET (FP) PO SCH (09:57)
[2022-02-18] MEDS: ENOXAPARIN NA (PORCINE) 40 MG/0.4 ML DISP.SYRIN SQ SCH (09:58)
[2022-02-18] MEDS: THIAMINE HCL 100 MG TABLET (FP) PO SCH ×2 (09:58→21:47)
[2022-02-18] MEDS: PANTOPRAZOLE 40 MG TABLET PO SCH (09:58)
[2022-02-18] MEDS: ZINC OXIDE/PANTHENOL/VITAMIN E 56 GM TUBE TP SCH ×2 (10:15→23:00)
[2022-02-18] MEDS: VITAMIN B COMPLEX W/C COMBO TABLET (FP) PO SCH (10:30)
[2022-02-18] MEDS ORDERED: ACETAMINOPHEN 325 MG TABLET (FP) PO PRN (11:22)
[2022-02-18] MEDS ORDERED: diphenhydrAMINE HCL 12.5 MG/5 ML UNIT-DOSE CUPS PO ONE (16:48)
[2022-02-18] MEDS: VANCOMYCIN/WATER FOR INJ (PEG) 1,000 MG/200 ML BAG IVPB SCH (17:31)
[2022-02-18] MEDS: carBAMazepine XR 200 MG TAB.ER.12H PO SCH (21:47)
[2022-02-19] MEDS ORDERED: LORazepam 0.5 MG TABLET PO PRN
[2022-02-19] MEDS ORDERED: chlordiazePOXIDE HCL 10 MG CAPSULE PO PRN
[2022-02-19] MEDS: clonazePAM 0.5 MG TABLET PO SCH ×2 (01:11→22:26)
[2022-02-19] MEDS: MEROPENEM 1 GM in DEXTROSE 5%-WATER 100 ML IVPB SCH ×3 (01:54→17:23)
[2022-02-19] MEDS ORDERED: chlordiazePOXIDE HCL 10 MG CAPSULE PO SCH (05:00)
[2022-02-19] MEDS: LORazepam 0.5 MG TABLET PO SCH ×4 (06:11→23:39)
[2022-02-19] MEDS: LEVOTHYROXINE NA 25 MCG TABLET (FP) PO SCH (06:11)
[2022-02-19] MEDS: THIAMINE HCL 100 MG TABLET (FP) PO SCH ×2 (10:48→22:26)
[2022-02-19] MEDS: POTASSIUM CHLORIDE TABS 20 MEQ TABLET.ER (FP) PO SCH (10:48)
[2022-02-19] MEDS: PANTOPRAZOLE 40 MG TABLET PO SCH (10:48)
[2022-02-19] MEDS: FOLIC ACID 1 MG TABLET (FP) PO SCH (10:48)
[2022-02-19] MEDS: VITAMIN B COMPLEX W/C COMBO TABLET (FP) PO SCH (10:49)
[2022-02-19] MEDS: ENOXAPARIN NA (PORCINE) 40 MG/0.4 ML DISP.SYRIN SQ SCH (10:50)
[2022-02-19] MEDS: ZINC OXIDE/PANTHENOL/VITAMIN E 56 GM TUBE TP SCH (10:51)
[2022-02-19] MEDS: TAMSULOSIN HCL 0.4 MG CAP PO SCH (10:51)
[2022-02-19] MEDS: NYSTATIN 100000 UNIT/GM TOPICAL OINTMENT 15 GM TUBE TP SCH ×2 (13:11→22:27)
[2022-02-19] MEDS: VANCOMYCIN/WATER FOR INJ (PEG) 1,000 MG/200 ML BAG IVPB SCH (17:23)
[2022-02-19] MEDS ORDERED: ACETAMINOPHEN 325 MG TABLET (FP) PO ONE (21:45)
[2022-02-19] MEDS ORDERED: oxyCODONE HCL 5 MG TABLET PO ONE (21:45)
[2022-02-19] MEDS: carBAMazepine XR 200 MG TAB.ER.12H PO SCH (22:26)
[2022-02-20] MEDS ORDERED: MELATONIN 5 MG TABLETS PO ONE (02:13)
[2022-02-20] MEDS: MEROPENEM 1 GM in DEXTROSE 5%-WATER 100 ML IVPB SCH ×3 (03:28→17:39)
[2022-02-20] MEDS ORDERED: LORazepam 0.5 MG TABLET PO ONE (05:00)
[2022-02-20] MEDS ORDERED: chlordiazePOXIDE HCL 10 MG CAPSULE PO SCH (05:00)
[2022-02-20] MEDS: LEVOTHYROXINE NA 25 MCG TABLET (FP) PO SCH (07:05)
[2022-02-20 08:17] LABS: BASO % 1.3 % (0-2.0); EOS % 6.8 % (0-4.5); HEMATOCRIT 36.2 % (35.4-49); HEMOGLOBIN 12.7 GM/dL (11.7-16.9); LYMPH % 24.3 % (8-40); MCH 32.6 pg (25.7-33.7); MEAN CELL VOLUME 93.2 fl (80-96); MEAN PLT VOLUME 8.7 fl (7.5-11.1); MONO % 14.5 % (3.8-10.2); NEUT % 53.1 % (42.8-82.8); PLATELET COUNT 81 10^3/uL (134-434); RBC 3.89 M/mm3 (4.00-5.60); RDW 15.9 % (11.9-15.9); WHITE BLOOD COUNT 2.8 K/mm3 (4.0-10.0)
[2022-02-20 08:33] LABS: CALCIUM 8.1 mg/dL (8.5-10.1)
[2022-02-20 08:36] LABS: CREATININE 0.6 mg/dL (0.55-1.3)
[2022-02-20 08:38] LABS: BILIRUBIN,TOTAL 0.9 mg/dL (0.2-1); TOT PROT 5.5 g/dl (6.4-8.2)
[2022-02-20 08:40] LABS: BLOOD UREA NITROGEN 13.2 mg/dL (7-18)
[2022-02-20] MEDS: TAMSULOSIN HCL 0.4 MG CAP PO SCH (09:05)
[2022-02-20] MEDS: FOLIC ACID 1 MG TABLET (FP) PO SCH (11:14)
[2022-02-20] MEDS: THIAMINE HCL 100 MG TABLET (FP) PO SCH ×2 (11:14→22:08)
[2022-02-20] MEDS: PANTOPRAZOLE 40 MG TABLET PO SCH (11:14)
[2022-02-20] MEDS: VITAMIN B COMPLEX W/C COMBO TABLET (FP) PO SCH (11:14)
[2022-02-20] MEDS: clonazePAM 0.5 MG TABLET PO SCH ×2 (11:14→22:08)
[2022-02-20] MEDS: POTASSIUM CHLORIDE TABS 20 MEQ TABLET.ER (FP) PO SCH (11:14)
[2022-02-20] MEDS: ENOXAPARIN NA (PORCINE) 40 MG/0.4 ML DISP.SYRIN SQ SCH (11:15)
[2022-02-20] MEDS: NYSTATIN 100000 UNIT/GM TOPICAL OINTMENT 15 GM TUBE TP SCH ×2 (11:15→22:08)
[2022-02-20] MEDS ORDERED: oxyCODONE HCL 5 MG TABLET PO PRN (14:00)
[2022-02-20] MEDS ORDERED: ACETAMINOPHEN 325 MG TABLET (FP) PO PRN (14:00)
[2022-02-20] MEDS: VANCOMYCIN/WATER FOR INJ (PEG) 1,000 MG/200 ML BAG IVPB SCH (17:36)
[2022-02-20] MEDS: carBAMazepine XR 200 MG TAB.ER.12H PO SCH (22:08)
[2022-02-21] MEDS ORDERED: MELATONIN 5 MG TABLETS PO SCH ×2 (01:15→22:00)
[2022-02-21] MEDS ORDERED: MELATONIN 5 MG TABLETS PO ONE (01:31)
[2022-02-21] MEDS: MEROPENEM 1 GM in DEXTROSE 5%-WATER 100 ML IVPB SCH ×3 (01:46→17:27)
[2022-02-21] MEDS ORDERED: chlordiazePOXIDE HCL 10 MG CAPSULE PO ONE (05:00)
[2022-02-21] MEDS: LEVOTHYROXINE NA 25 MCG TABLET (FP) PO SCH (06:03)
[2022-02-21 08:09] LABS: BLOOD UREA NITROGEN 12.8 mg/dL (7-18); CALCIUM 8.2 mg/dL (8.5-10.1)
[2022-02-21 08:10] LABS: ALBUMIN 2.8 g/dl (3.4-5.0)
[2022-02-21 08:12] LABS: CREATININE 0.7 mg/dL (0.55-1.3)
[2022-02-21 08:13] LABS: BASO % 1.1 % (0-2.0); EOS % 5.5 % (0-4.5); HEMATOCRIT 35.3 % (35.4-49); HEMOGLOBIN 12.2 GM/dL (11.7-16.9); LYMPH % 21.9 % (8-40); MCH 32.7 pg (25.7-33.7); MCHC 34.6 g/dl (32.0-35.9); MEAN CELL VOLUME 94.5 fl (80-96); MEAN PLT VOLUME 9.9 fl (7.5-11.1); MONO % 15.5 % (3.8-10.2); PLATELET COUNT 77 10^3/uL (134-434); RBC 3.73 M/mm3 (4.00-5.60); RDW 15.4 % (11.9-15.9); WHITE BLOOD COUNT 2.7 K/mm3 (4.0-10.0)
[2022-02-21 08:14] LABS: BILIRUBIN,TOTAL 0.6 mg/dL (0.2-1); TOT PROT 5.3 g/dl (6.4-8.2)
[2022-02-21] MEDS: TAMSULOSIN HCL 0.4 MG CAP PO SCH (08:20)
[2022-02-21] MEDS: FOLIC ACID 1 MG TABLET (FP) PO SCH (10:21)
[2022-02-21] MEDS: clonazePAM 0.5 MG TABLET PO SCH ×2 (10:22→21:11)
[2022-02-21] MEDS: PANTOPRAZOLE 40 MG TABLET PO SCH (10:22)
[2022-02-21] MEDS: POTASSIUM CHLORIDE TABS 20 MEQ TABLET.ER (FP) PO SCH (10:22)
[2022-02-21] MEDS: THIAMINE HCL 100 MG TABLET (FP) PO SCH ×2 (10:22→21:12)
[2022-02-21] MEDS: NYSTATIN 100000 UNIT/GM TOPICAL OINTMENT 15 GM TUBE TP SCH ×2 (10:23→21:12)
[2022-02-21] MEDS: ENOXAPARIN NA (PORCINE) 40 MG/0.4 ML DISP.SYRIN SQ SCH (10:23)
[2022-02-21] MEDS: VITAMIN B COMPLEX W/C COMBO TABLET (FP) PO SCH (10:23)
[2022-02-21] MEDS: VANCOMYCIN/WATER FOR INJ (PEG) 1,000 MG/200 ML BAG IVPB SCH (17:27)
[2022-02-21] MEDS ORDERED: KETOROLAC TROMETHAMINE 30 MG/1 ML VIAL IM ONE (19:55)
[2022-02-21] MEDS: BANATROL PLUS POWDER PACKET PO SCH (21:11)
[2022-02-21] MEDS: carBAMazepine XR 200 MG TAB.ER.12H PO SCH (21:12)
[2022-02-22] MEDS: MEROPENEM 1 GM in DEXTROSE 5%-WATER 100 ML IVPB SCH ×2 (01:42→13:42)
[2022-02-22] MEDS: BANATROL PLUS POWDER PACKET PO SCH (05:17)
[2022-02-22] MEDS: LEVOTHYROXINE NA 25 MCG TABLET (FP) PO SCH (06:01)
[2022-02-22] MEDS ORDERED: CEFUROXIME AXETIL 500 MG TABLET PO SCH (10:15)
[2022-02-22] MEDS: FOLIC ACID 1 MG TABLET (FP) PO SCH (10:22)
[2022-02-22] MEDS: ENOXAPARIN NA (PORCINE) 40 MG/0.4 ML DISP.SYRIN SQ SCH (10:22)
[2022-02-22] MEDS: PANTOPRAZOLE 40 MG TABLET PO SCH (10:22)
[2022-02-22] MEDS: VITAMIN B COMPLEX W/C COMBO TABLET (FP) PO SCH (10:22)
[2022-02-22] MEDS: THIAMINE HCL 100 MG TABLET (FP) PO SCH (10:22)
[2022-02-22] MEDS: POTASSIUM CHLORIDE TABS 20 MEQ TABLET.ER (FP) PO SCH (10:22)
[2022-02-22] MEDS: clonazePAM 0.5 MG TABLET PO SCH (10:22)
[2022-02-22] MEDS: TAMSULOSIN HCL 0.4 MG CAP PO SCH (10:22)
[2022-02-22 11:58] VITALS: RESP 16
[2022-02-22] MEDS ORDERED: NYSTATIN 100,000 UNIT/GM TOPICAL CREAM 15 GM TUBE TP SCH (12:45)
[2022-02-22] MEDS: NYSTATIN 100000 UNIT/GM TOPICAL OINTMENT 15 GM TUBE TP SCH (13:42)
[2022-02-22 14:48] VITALS: BP 144/77; PULSE 84; TEMP 97.8
== END 2022-02-22 18:01 | disposition home or self-care (01) | DRG 603 ==
LOC: JER 11:47 → JERBED 18:12 → J4S 02-17 19:18
PROVIDERS: ADMIT Internal Medicine; ATTEND Internal Medicine
PROC: HZ2ZZZZ Detoxification Services for Substance Abuse Treatment (ICD-10-PCS; principal; 2022-02-16)
DX: L03.116 Cellulitis of left lower limb (principal); F10.939 Alcohol use, unspecified with withdrawal, unspecified; R45.851 Suicidal ideations; Z68.41 Body mass index [BMI] 40.0-44.9, adult; I85.10 Secondary esophageal varices without bleeding; L03.115 Cellulitis of right lower limb; E03.9 Hypothyroidism, unspecified; K70.30 Alcoholic cirrhosis of liver without ascites; E87.6 Hypokalemia; E66.9 Obesity, unspecified; F31.9 Bipolar disorder, unspecified; F60.3 Borderline personality disorder; K21.9 Gastro-esophageal reflux disease without esophagitis
CPT/HCPCS: 0241U-QW; 36415; 71045-TC-FY; 72170-TC-FY; 73552-TC-LT-FY; 73552-TC-RT-FY; 80053; 80156; 80307; 81003; 82140; 82248; 82550; 82553; 82728; 82803; 83605; 83690; 83735; 84100; 84132; 84439; 84443; 84484; 85025; 85610; 85730; 86850; 86900; 86901; 87040; 87086; 87389; 93005; 93010; 99285-25; G0480